=== PATIENT | male | born 1980 | race African-American/Black ===

== ENCOUNTER → 2024-12-24 | Outpatient (CLI) | payer OTHER ==
--- NOTE | 2024-12-24 22:26 | HMCIMG ---
EXAM: CT CHEST WITHOUT CONTRAST Technique: Helical computed tomography of the chest from thoracic inlet through upper abdomen with axial acquisition and coronal/sagittal reformations; CTDIvol 11.00 mGy, DLP 371.00 mGy???cm. Contrast: No intravenous contrast administered. Clinical Information: Strongyloidiasis, unspecified. Findings: Soft tissues: No acute abnormality of the visualized chest wall soft tissues. Lungs and large airways: Tracheobronchial tree is patent, and no focal consolidation or suspicious pulmonary nodule is identified. Pleura: No pleural effusion, pleural mass, or pneumothorax. Heart and pericardium: Heart size within normal limits without pericardial effusion. Aorta: Normal course and caliber without aneurysm. Lymph nodes: No enlarged mediastinal, hilar, or axillary lymph nodes. Mediastinum and rocio: No mediastinal mass. Chest wall and lower neck: No abnormality identified. Bones/joints: No acute osseous abnormality. Upper abdomen: No acute abnormality in the visualized portions. Impression: * No acute intrathoracic abnormality. * No pleural effusion, consolidation, or suspicious pulmonary nodule identified on this non-contrast examination. /[place]
== END | disposition home or self-care (01) ==
LOC: RAH 11:22 → EEVIPCON 11:22 → EDBD 13:00
PROVIDERS: ATTEND Family Medicine
DX: B78.9 Strongyloidiasis, unspecified (principal)
CPT/HCPCS: 71250